=== PATIENT | female | born 1955 | race Caucasian/White ===

== ENCOUNTER 2023-03-01 16:27 | Emergency (ER) | payer OTHER ==
[2023-03-01] MEDS ORDERED: ACETAMINOPHEN 500 MG TABLET (FP) PO ONE (16:54)
[2023-03-01 16:55] VITALS: BP 140/85; PULSE 82; RESP 16; TEMP 98.2; BMI 26.0
[2023-03-01] MEDS ORDERED: ACETAMINOPHEN 500 MG TABLET (FP) ONE (17:07)
[2023-03-01 17:48] LABS: HEMOGLOBIN 12.1 G/dL (10.7-15.3); MCH 28.2 pg (25.7-33.7); MCHC 32.7 g/dl (32.0-36.0); MEAN CELL VOLUME 86.2 fl (80-96); MEAN PLT VOLUME 9.2 fl (7.5-11.1); PLATELET COUNT 273.8 10^3/uL (134-434); RBC 4.29 10^6/uL (3.60-5.2); RDW 16.4 % (11.6-15.6); WHITE BLOOD COUNT 10.2 10^3/uL (4.0-10.8)
[2023-03-01 17:54] LABS: BILIRUBIN,TOTAL 0.8 mg/dl (0.2-1); CALCIUM 9.6 mg/dl (8.5-10); CREATININE 0.8 mg/dl (0.55-1.3); TOT PROT 7.5 g/dl (6.4-8.2)
[2023-03-01 18:30] LABS: PLATELET ESTIMATE ADEQUATE
[2023-03-01 18:32] LABS: EPITHELIAL CELLS FEW /hpf
== END 2023-03-01 19:56 | disposition home or self-care (01) ==
LOC: FER 16:27
DX: R10.31 Right lower quadrant pain (principal); Z20.822 Contact with and (suspected) exposure to COVID-19
CPT/HCPCS: 0241U-QW; 36415; 74177-TC; 80053; 81003; 81015; 83690; 85027; 87086; 99285-25; Q9967